=== PATIENT | male | born 1990 | race Two or more races ===

== ENCOUNTER 2021-05-04 13:40 | Emergency (ER) | payer MEDICAID, OTHER ==
[~2021-05-04] VITALS: Ht 182.9 cm; Wt 104.3 kg
[2021-05-04 14:14] LABS: Basophils # (auto) 0.1 10 ^3/uL (0-0.2); Basophils % (auto) 0.8 % (0.0-2.0); Eosinophils # (auto) 0.1 10 ^3/uL (0-0.8); Eosinophils % (auto) 0.8 % (0.0-7.0); Hematocrit 45.9 % (41.0-53.0); Hemoglobin 15.1 g/dL (13.5-17.5); Mean Corpuscular Hemoglobin 28.1 pg (28.0-32.0); Mean Corpuscular Hgb Conc. 32.9 g/dL (32.0-36.0); Mean Corpuscular Volume 85.5 fL (80.0-100.0); Monocytes # (auto) 0.7 10 ^3/uL (0-1.3); Monocytes % (auto) 7.6 % (0.0-12.0); Neutrophils % (auto) 56.8 % (37.0-80.0); Nucleated Red Blood Cells % 0.1 %; Red Blood Cells 5.37 10^6/uL (4.5-5.90); Red Cell Distribution Width 13.5 % (11.8-14.3); White Blood Cell 8.7 10^3/uL (4.4-10.8)
[2021-05-04 14:34] LABS: Albumin 3.8 g/dL (3.4-5.0); Anion Gap 8 (5-15); BUN/Creatinine Ratio 10.8; Blood Urea Nitrogen 12 mg/dL (7-18); Calcium 9.5 mg/dL (8.5-10.1); Carbon Dioxide 24 mmol/L (21-32); Chloride 107 mmol/L (98-107); GFR African American 99 mL/min; GFR Non-African American 82 mL/min; Glucose 104 mg/dL (74-106); Potassium 3.8 mmol/L (3.5-5.1); Sodium 139 mmol/L (136-145)
[2021-05-04 14:39] LABS: Alanine Aminotransferase 39 U/L (16-61); Alkaline Phosphatase 62 U/L (45-117); Aspartate Aminotransferase 19 U/L (15-37); Bilirubin, Total 0.6 mg/dL (0.2-1.0); Total Protein 7.9 g/dL (6.4-8.2)
[2021-05-04 18:11] VITALS: BP 148/72
== END 2021-05-04 18:12 | disposition home or self-care (01) ==
LOC: ER 13:40
DX: R07.89 Other chest pain (principal); F41.9 Anxiety disorder, unspecified; R51.9 Headache, unspecified; Z86.711 Personal history of pulmonary embolism
CPT/HCPCS: 36415; 70450; 80053; 84443; 84484; 85025

== ENCOUNTER 2022-02-08 11:06 | Emergency (ER) | payer MEDICAID ==
[2022-02-08 11:47] VITALS: BP 149/78
[2022-02-08] MEDS ORDERED: IBUP800T27 PO (12:10)
[2022-02-08] MEDS ORDERED: IBUPROFEN 800 MG TAB PO ONE (12:15)
[2022-02-08] MEDS ORDERED: CIPRSUS OT (12:22)
== END 2022-02-08 12:22 | disposition home or self-care (01) ==
LOC: ER 11:06
DX: G44.209 Tension-type headache, unspecified, not intractable (principal)